=== PATIENT | female | born 1980 | race Two or more races ===

== ENCOUNTER 2021-01-14 20:44 | Emergency (ER) | payer MEDICAID, OTHER ==
[~2021-01-14] VITALS: Ht 160 cm; Wt 90.7 kg
[2021-01-14 20:50] VITALS: BP 130/110
[2021-01-14] MEDS ORDERED: NACL 0.9% 1,000 ML IV ONE ×2 (21:30→22:45)
[2021-01-14 21:55] LABS: BASOPHILS # (AUTO) 0.2 K/uL (0.00-0.22); BASOPHILS % (AUTO) 1.5 % (0.0-2.0); EOSINOPHILS % (AUTO) 0.1 % (0.0-4.0); HEMATOCRIT 40.2 % (36-48); HEMOGLOBIN 13.5 g/dL (12.0-16.0); LYMPHOCYTES # (AUTO) 0.6 K/uL (2.5-16.5); LYMPHOCYTES % (AUTO) 5.4 % (20.5-51.1); MEAN CORPUSCULAR HEMOGLOBIN 30 pg (27-31); MEAN CORPUSCULAR HGB CONC 34 g/dL (33-37); MEAN CORPUSCULAR VOLUME 88.4 fL (80-94); MONOCYTES # (AUTO) 0.7 K/uL (0.8-1.0); MONOCYTES % (AUTO) 6.3 % (1.7-9.3); NEUTROPHILS # (AUTO) 9.8 K/uL (1.8-7.7); NEUTROPHILS % (AUTO) 86.7 % (42.2-75.2); PLATELET COUNT (AUTO) 212 K/uL (140-450); RED BLOOD CELL COUNT(AUTO) 4.54 MIL/uL (4.20-5.40); RED CELL DISTRIBUTION WIDTH 12.8 % (11.6-13.7); WHITE BLOOD COUNT (AUTO) 11.3 K/uL (4.8-10.8)
[2021-01-14 22:08] LABS: ALBUMIN 3.7 g/dL (3.4-5.0); ANION GAP 13.6 (8-16); CARBON DIOXIDE 23.6 mmol/L (21-32); POTASSIUM 4.2 mmol/L (3.5-5.1); TOTAL BILIRUBIN 0.4 mg/dL (0.0-1.0)
[2021-01-14 22:33] LABS: APPEARANCE,URINE CLEAR (CLEAR); BILIRUBIN,URINE NEGATIVE (NEGATIVE); BLOOD, URINE NEGATIVE (NEGATIVE); COLOR,URINE YELLOW (YELLOW); LEUKOCYTE ESTERASE ,URINE 2+ (NEGATIVE); NITRITE, URINE NEGATIVE (NEGATIVE); PH,URINE 6.5 (5.0-9.0); UGLUCOSE NEGATIVE (NEGATIVE)
[2021-01-14 22:45] LABS: RBC,URINE 0-5 /HPF (0-5)
[2021-01-14] MEDS ORDERED: CEPH-588 PO (23:33)
[2021-01-14] MEDS ORDERED: cefTRIAXone 1,000 MG VIAL ONE (23:34)
[2021-01-15 00:42] VITALS: BP 103/56
== END 2021-01-15 00:42 | disposition home or self-care (01) ==
LOC: MED 20:44
DX: N39.0 Urinary tract infection, site not specified (principal); E86.0 Dehydration; R53.1 Weakness; I10 Essential (primary) hypertension; Z88.6 Allergy status to analgesic agent; Z88.8 Allergy status to other drugs, medicaments and biological substances
CPT/HCPCS: 36415; 71045; 80053; 81001; 83880; 84484; 84702; 85025; 87086; 93005; 96361; 96365; 99285; J0696; J7030

== ENCOUNTER 2021-02-27 17:34 | Emergency (ER) | payer OTHER ==
[~2021-02-27] VITALS: Ht 165.1 cm; Wt 143.9 kg
[~2021-02-27 17:34] MED LIST: CEPH-588 PO
[2021-02-27 17:41] VITALS: BP 100/58
[2021-02-27] MEDS ORDERED: LIDOCAINE OINTMENT 5% 35 GM TUBE TP ONE (19:50)
[2021-02-27 20:05] LABS: BASOPHILS # (AUTO) 0.1 K/uL (0.00-0.22); BASOPHILS % (AUTO) 0.8 % (0.0-2.0); EOSINOPHILS # (AUTO) 0.1 K/uL (0-0.4); EOSINOPHILS % (AUTO) 1.6 % (0.0-4.0); HEMATOCRIT 37.2 % (36-48); HEMOGLOBIN 12.9 g/dL (12.0-16.0); LYMPHOCYTES # (AUTO) 2.1 K/uL (2.5-16.5); LYMPHOCYTES % (AUTO) 22.1 % (20.5-51.1); MEAN CORPUSCULAR HEMOGLOBIN 30 pg (27-31); MEAN CORPUSCULAR HGB CONC 35 g/dL (33-37); MEAN CORPUSCULAR VOLUME 87.6 fL (80-94); MONOCYTES # (AUTO) 0.6 K/uL (0.8-1.0); MONOCYTES % (AUTO) 5.8 % (1.7-9.3); NEUTROPHILS # (AUTO) 6.6 K/uL (1.8-7.7); NEUTROPHILS % (AUTO) 69.7 % (42.2-75.2); PLATELET COUNT (AUTO) 243 K/uL (140-450); RED BLOOD CELL COUNT(AUTO) 4.24 MIL/uL (4.20-5.40); WHITE BLOOD COUNT (AUTO) 9.5 K/uL (4.8-10.8)
[2021-02-27 20:20] LABS: ANION GAP 14.1 (8-16); CARBON DIOXIDE 27.1 mmol/L (21-32); CREATININE 0.7 mg/dL (0.6-1.3); POTASSIUM 4.2 mmol/L (3.5-5.1)
[2021-02-27 21:15] VITALS: BP 104/60
== END 2021-02-27 21:15 | disposition home or self-care (01) ==
LOC: MED 17:34
DX: R60.0 Localized edema (principal); R20.0 Anesthesia of skin; J44.9 Chronic obstructive pulmonary disease, unspecified; I10 Essential (primary) hypertension; Z88.6 Allergy status to analgesic agent; Z88.8 Allergy status to other drugs, medicaments and biological substances
CPT/HCPCS: 36415; 71045; 80048; 83880; 84443; 85025; 99284

== ENCOUNTER 2022-02-04 18:22 | Emergency (ER) | payer OTHER ==
[~2022-02-04] VITALS: Ht 165.1 cm; Wt 155.1 kg
[2022-02-04 18:49] VITALS: BP 131/88
[2022-02-04] MEDS ORDERED: NACL 0.9% 500 ML IV ONE (19:15)
[2022-02-04] MEDS ORDERED: MORPHINE SULFATE 4 MG/ML SYR IVP ONE (19:15)
--- NOTE | 2022-02-04 19:37 | NUR ---
REPORT GIVEN TO VIKASH GEORGE. TRANSFER OF CARE
--- NOTE | 2022-02-04 20:14 | NUR ---
Dr. Christine examming patient and explain treatment plans.
[2022-02-04] MEDS ORDERED: MORP15TA PO (20:21)
[2022-02-04 21:23] VITALS: BP 131/88
--- NOTE | 2022-02-04 21:23 | NUR ---
Patient discharged with v/s stable. Written and verbal after care instructions given and explained. Patient alert, oriented and verbalized understanding of instructions. Ambulatory with steady gait. All questions addressed prior to discharge. ID band removed. Patient advised to follow up with PMD. Rx of MORPHINE given. Opportunity to ask questions provided and answered.
--- NOTE | 2022-02-05 01:16 | NUR ---
The patient's care was reviewed and supervised by Stephanie Magallon RN.
--- NOTE | 2022-02-05 01:16 | NUR ---
PATIENT PRESENTS TO ED WITH HEADACHE AND CHEST PAIN LEVEL 10/10 X TODAY. PT STATES SHE GETS MIGRAINS OFTEN. DENIES V/D BUT IS NAUSOUS AND DIZZY; SKIN IS PINK/WARM/DRY; AAOX4 WITH EVEN AND STEADY GAIT; LUNGS CLEAR BL; HR EVEN AND REGULAR; PT DENIES ANY FEVER, CP, SOB, OR COUGH AT THIS TIME;VSS; PATIENT POSITIONED FOR COMFORT; HOB ELEVATED; BEDRAILS UP X2; BED DOWN. ER MD MADE AWARE OF PT STATUS. PMH; HTN, SPINAL FUSION
== END 2022-02-04 21:23 | disposition home or self-care (01) ==
LOC: MED 18:22
DX: G43.909 Migraine, unspecified, not intractable, without status migrainosus (principal); J44.9 Chronic obstructive pulmonary disease, unspecified; I10 Essential (primary) hypertension; Z79.899 Other long term (current) drug therapy; Z88.5 Allergy status to narcotic agent; Z88.6 Allergy status to analgesic agent; Z98.890 Other specified postprocedural states
CPT/HCPCS: 70450; 96361; 96374; 99284; J2270; J7030

== ENCOUNTER 2022-12-21 23:11 | Emergency (ER) | payer OTHER ==
[~2022-12-21] VITALS: Ht 165.1 cm; Wt 154.7 kg
[~2022-12-21 23:11] MED LIST changes: +MORP15TA PO
--- NOTE | 2022-12-22 00:06 | NUR ---
Called no show in lobby or outside.
[2022-12-22 00:07] VITALS: BP 146/86
--- NOTE | 2022-12-22 03:45 | NUR ---
PATIENT LEFT WITHOUT BEING SEEN BY DR. Cintron. NO FURTHER CARE PROVIDED FOR PATIENT.
== END 2022-12-22 03:45 | disposition left against medical advice (07) ==
LOC: MED 23:11
DX: R00.2 Palpitations (principal); Z53.21 Procedure and treatment not carried out due to patient leaving prior to being seen by health care provider
CPT/HCPCS: 99281

== ENCOUNTER 2024-05-29 19:39 | Inpatient (IN) | payer OTHER ==
[~2024-05-29] VITALS: Ht 165.1 cm; Wt 120.7 kg
[2024-05-29 19:57] VITALS: BP 143/93; PULSE 99; RESP 16; TEMP 97.4; O2SAT 99
[2024-05-29 21:09] LABS: BASOPHILS # (AUTO) 0.1 K/uL (0.00-0.22); BASOPHILS % (AUTO) 0.9 % (0.0-2.0); EOSINOPHILS # (AUTO) 0.1 K/uL (0-0.4); EOSINOPHILS % (AUTO) 0.7 % (0.0-4.0); HEMATOCRIT 37.5 % (36-48); HEMOGLOBIN 12.7 g/dL (12.0-16.0); LYMPHOCYTES # (AUTO) 2.4 K/uL (2.5-16.5); MEAN CORPUSCULAR HEMOGLOBIN 28 pg (27-31); MEAN CORPUSCULAR HGB CONC 34 g/dL (33-37); MEAN CORPUSCULAR VOLUME 83.6 fL (80-94); MONOCYTES # (AUTO) 0.9 K/uL (0.8-1.0); MONOCYTES % (AUTO) 7.9 % (1.7-9.3); NEUTROPHILS # (AUTO) 7.9 K/uL (1.8-7.7); NEUTROPHILS % (AUTO) 69.5 % (42.2-75.2); PLATELET COUNT (AUTO) 341 K/uL (140-450); RED BLOOD CELL COUNT(AUTO) 4.49 MIL/uL (4.20-5.40); RED CELL DISTRIBUTION WIDTH 13.1 % (11.6-13.7); WHITE BLOOD COUNT (AUTO) 11.4 K/uL (4.8-10.8)
[2024-05-29 21:27] LABS: ANION GAP 11.9 (8-16); CALCIUM 8.9 mg/dL (8.5-10.1); CARBON DIOXIDE 27.1 mmol/L (21-32); CREATININE 0.9 mg/dL (0.6-1.3)
[2024-05-29] MEDS ORDERED: VANCOMYCIN 1,000 MG VIAL ONE (21:53)
[2024-05-29] MEDS: VANCOMYCIN 1,000 MG in DEXTROSE 5% 250 ML IV ONE (21:56)
[2024-05-29] MEDS ORDERED: ONDANSETRON 4 MG/2 ML VIAL IVP PRN (22:05)
[2024-05-29 23:05] VITALS: PULSE 102; RESP 18; O2SAT 100
[2024-05-29] MEDS: diphenhydrAMINE 50 MG/ML VIAL IVP ONE (23:31)
[2024-05-29] MEDS: MORPHINE SULFATE 2 MG/ML SYR IVP PRN (23:40)
[2024-05-30] VITALS: BP 138/92; PULSE 92; RESP 18; TEMP 98.4; O2SAT 99
[2024-05-30 04:00] VITALS: BP 102/57; PULSE 70; RESP 18; TEMP 97.2; O2SAT 98
[2024-05-30] MEDS: ceFAZolin 1,000 MG VIAL ONE (04:35)
[2024-05-30 06:27] LABS: BASOPHILS # (AUTO) 0.1 K/uL (0.00-0.22); BASOPHILS % (AUTO) 0.6 % (0.0-2.0); EOSINOPHILS # (AUTO) 0.2 K/uL (0-0.4); EOSINOPHILS % (AUTO) 1.9 % (0.0-4.0); HEMATOCRIT 33.8 % (36-48); HEMOGLOBIN 11.4 g/dL (12.0-16.0); LYMPHOCYTES # (AUTO) 2.3 K/uL (2.5-16.5); LYMPHOCYTES % (AUTO) 24.2 % (20.5-51.1); MEAN CORPUSCULAR HEMOGLOBIN 28 pg (27-31); MEAN CORPUSCULAR HGB CONC 34 g/dL (33-37); MEAN CORPUSCULAR VOLUME 83.2 fL (80-94); MONOCYTES # (AUTO) 0.9 K/uL (0.8-1.0); MONOCYTES % (AUTO) 9.4 % (1.7-9.3); NEUTROPHILS % (AUTO) 63.9 % (42.2-75.2); PLATELET COUNT (AUTO) 313 K/uL (140-450); RED BLOOD CELL COUNT(AUTO) 4.06 MIL/uL (4.20-5.40); RED CELL DISTRIBUTION WIDTH 13.4 % (11.6-13.7); WHITE BLOOD COUNT (AUTO) 9.4 K/uL (4.8-10.8)
[2024-05-30 06:34] LABS: ANION GAP 10.2 (8-16); CALCIUM 8.5 mg/dL (8.5-10.1); CARBON DIOXIDE 26.9 mmol/L (21-32); CREATININE 0.8 mg/dL (0.6-1.3); POTASSIUM 4.1 mmol/L (3.5-5.1)
[2024-05-30 08:00] VITALS: BP 113/73; PULSE 69; RESP 18; TEMP 97.9; O2SAT 97
[2024-05-30] MEDS: ENOXAPARIN 40 MG/0.4 ML SYR SUBQ SCH (08:18)
[2024-05-30] MEDS ORDERED: TIZA4TAB11 PO (08:27)
[2024-05-30] MEDS: MEDS-TO-BEDS MC SCH (09:00)
[2024-05-30] MEDS: NACL 0.9% 1,000 ML IV SCH (13:08)
[2024-05-30] MEDS: diphenhydrAMINE 50 MG/ML VIAL IVP PRN (15:58)
[2024-05-30 16:00] VITALS: BP 126/79; PULSE 80; RESP 18; TEMP 97.7; O2SAT 98
[2024-05-30 20:00] VITALS: BP 146/89; PULSE 89; RESP 18; TEMP 97.3; O2SAT 98
[2024-05-31 04:00] VITALS: BP 98/51; PULSE 61; RESP 20; TEMP 97.1; O2SAT 97
[2024-05-31 08:00] VITALS: BP 89/49; PULSE 59; RESP 20; TEMP 97.7; TEMP 97.9; O2SAT 95
[2024-05-31 16:00] VITALS: BP 125/83; PULSE 78; RESP 18; TEMP 97.9; O2SAT 100
[2024-05-31 20:00] VITALS: BP 147/87; PULSE 74; RESP 19; TEMP 97; O2SAT 99
[2024-06-01 04:00] VITALS: BP 110/76; PULSE 76; RESP 18; TEMP 97.2; O2SAT 97
[2024-06-01 08:00] VITALS: BP 97/58; PULSE 59; RESP 18; TEMP 98; O2SAT 98
[2024-06-01 12:00] VITALS: BP 97/58; PULSE 59; RESP 18; TEMP 98; O2SAT 98
[2024-06-01 16:00] VITALS: BP 126/68; PULSE 73; RESP 18; TEMP 97.8; O2SAT 99
[2024-06-01 20:00] VITALS: BP 137/85; PULSE 74; RESP 20; TEMP 97.8; O2SAT 100; O2SAT 99
[2024-06-02 04:00] VITALS: BP 116/76; PULSE 69; RESP 18; TEMP 96.5; O2SAT 99
[2024-06-02 08:00] VITALS: BP 136/75; PULSE 55; PULSE 74; RESP 18; RESP 20; TEMP 96.9; O2SAT 96; O2SAT 99
[2024-06-02 16:00] VITALS: BP 153/95; PULSE 90; RESP 18; TEMP 96.9; O2SAT 100
[2024-06-02 20:00] VITALS: BP 139/80; PULSE 78; RESP 20; TEMP 98; O2SAT 99
[2024-06-03 04:00] VITALS: BP 132/82; PULSE 71; RESP 19; TEMP 97.6; O2SAT 96
[2024-06-03 08:00] VITALS: PULSE 69; RESP 20; TEMP 98; O2SAT 98
[2024-06-03] MEDS: LEVOFLOXACIN 500 MG/D5W PREMIX 100 ML IV SCH (08:37)
[2024-06-03] MEDS ORDERED: [UNRECOGNIZED DRUG - CODE] IV (15:00)
[2024-06-03 16:15] LABS: BASOPHILS # (AUTO) 0.1 K/uL (0.00-0.22); BASOPHILS % (AUTO) 0.9 % (0.0-2.0); EOSINOPHILS # (AUTO) 0.1 K/uL (0-0.4); HEMATOCRIT 35.4 % (36-48); HEMOGLOBIN 12.1 g/dL (12.0-16.0); LYMPHOCYTES # (AUTO) 1.8 K/uL (2.5-16.5); LYMPHOCYTES % (AUTO) 28.4 % (20.5-51.1); MEAN CORPUSCULAR HEMOGLOBIN 28 pg (27-31); MEAN CORPUSCULAR HGB CONC 34 g/dL (33-37); MEAN CORPUSCULAR VOLUME 82.2 fL (80-94); MONOCYTES # (AUTO) 0.4 K/uL (0.8-1.0); MONOCYTES % (AUTO) 6.6 % (1.7-9.3); NEUTROPHILS # (AUTO) 4.1 K/uL (1.8-7.7); NEUTROPHILS % (AUTO) 63.1 % (42.2-75.2); PLATELET COUNT (AUTO) 369 K/uL (140-450); RED BLOOD CELL COUNT(AUTO) 4.31 MIL/uL (4.20-5.40); RED CELL DISTRIBUTION WIDTH 13.1 % (11.6-13.7); WHITE BLOOD COUNT (AUTO) 6.5 K/uL (4.8-10.8)
[2024-06-03 16:29] LABS: ALBUMIN 3.2 g/dL (3.4-5.0); ANION GAP 9.9 (8-16); CALCIUM 8.6 mg/dL (8.5-10.1); CARBON DIOXIDE 28.1 mmol/L (21-32); CREATININE 0.8 mg/dL (0.6-1.3); MAGNESIUM 1.6 mg/dL (1.8-2.4); TOTAL BILIRUBIN 0.4 mg/dL (0.0-1.0); TOTAL PROTEIN, SERUM 7.7 g/dL (6.4-8.2)
[2024-06-03] MEDS: MAGNESIUM OXIDE 400 MG TAB PO SCH (16:56)
== END 2024-06-03 16:55 | disposition home health service (06) | DRG 721 ==
LOC: MED 19:39 → OBSVTOIN 22:08 → MMU 22:08 → MTU 22:34
PROVIDERS: ADMIT Hospitalist; ATTEND Hospitalist
PROC: 02HV33Z Insertion of Infusion Device into Superior Vena Cava, Percutaneous Approach (ICD-10-PCS; principal; 2024-06-01)
PROC: B548ZZA Ultrasonography of Superior Vena Cava, Guidance (ICD-10-PCS; 2024-06-01)
DX: T80.211A Bloodstream infection due to central venous catheter, initial encounter (principal); I11.0 Hypertensive heart disease with heart failure; I50.9 Heart failure, unspecified; D72.829 Elevated white blood cell count, unspecified; L03.113 Cellulitis of right upper limb; E66.9 Obesity, unspecified; Z79.899 Other long term (current) drug therapy; Z88.8 Allergy status to other drugs, medicaments and biological substances; Z68.41 Body mass index [BMI] 40.0-44.9, adult; B96.89 Other specified bacterial agents as the cause of diseases classified elsewhere
CPT/HCPCS: 36415; 71045; 80048; 80053; 83605; 83735; 85025; 87040; 87070; 87081; 87186; 96365; 99285; J0690; J1200; J1650; J1956; J2270; J3370; J7060; Q0092